=== PATIENT | female | born 1965 | race Caucasian/White ===

== ENCOUNTER → 2020-10-17 15:21 | Outpatient (BNVA) | payer OTHER, MEDICAID, SELFPAY | PROVIDERS: PCP Internal Medicine; Visit Provider Surgery | DX: K60.2 Anal fissure, unspecified (principal); E11.9 Type 2 diabetes mellitus without complications; I10 Essential (primary) hypertension; E66.01 Morbid (severe) obesity due to excess calories; Z68.41 Body mass index [BMI] 40.0-44.9, adult; Z79.4 Long term (current) use of insulin; Z79.899 Other long term (current) drug therapy | CPT/HCPCS: 99202 ==

== ENCOUNTER 2020-11-01 06:57 | Day surgery (SDC) | payer OTHER, SELFPAY ==
--- NOTE | 2020-10-31 09:47 | HO.ANESPROP2 ---
Documented by User: Bell Ramos NP 10/31/20 09:47 HPI - Anesthesia Eval Consult details Narrative: 55yo F for Exam Under Anesthesia, Poss Lateral Internal Sphincterotomy PMFSH Active Problems Active Problems: All Active Problems (Updated 10/25/20 @ 09:01 by Aissatou Torrez, RN) Anal fissure (Acute) Hypertension (Acute) Diabetes mellitus (Acute) Depression (Acute) Thyroid disease (Acute) Morbid obesity (Acute) Past Medical History Medical History (Updated 10/31/20 @ 09:47 by Bell Ramos NP) Anal fissure Depression Diabetes mellitus Hypertension Hypothyroidism Morbid obesity Thyroid disease Family History Family History Mother History of kidney cancer Surgical History Surgical History (Updated 10/24/20 @ 16:10 by Aissatou Torrez RN) S/P anal fissurectomy Social History Social History Alcohol intake: never Patient Tobacco Use Status: Never used Tobacco Second Hand Smoke Exposure: No Use of substances other than those prescribed or required for medical reasons: No Are you DNR?: No Advance Directives: No Advance Directives Information Provided: Yes Advance Directives on File: No Meds Allergies Allergy/AdvReac Type Severity Reaction Status Date / Time No Known Allergies Allergy Verified 10/24/20 16:10 Home Medications Medication Instructions Recorded Confirmed Last Taken Type amitriptyline 10 mg tablet 10 mg PO BEDTIME 10/17/20 10/24/20 Unknown History atorvastatin 20 mg tablet 20 mg PO DAILY 10/17/20 10/24/20 Unknown History insulin glargine 100 unit/mL (3 10 unit SUBCUT QPM 10/17/20 10/24/20 Unknown History mL) subcutaneous pen (Lantus Solostar U-100 Insulin) levothyroxine 200 mcg capsule 200 mcg PO DAILY 10/17/20 10/24/20 Unknown History levothyroxine 50 mcg capsule 50 mcg PO DAILY 10/17/20 10/24/20 Unknown History lisinopril 20 mg tablet 20 mg PO DAILY 10/17/20 10/24/20 Unknown History prazosin 1 mg capsule 1 mg PO BEDTIME 10/17/20 10/24/20 Unknown History sennosides 8.6 mg capsule (senna) 8.6 mg PO BEDTIME 10/17/20 10/24/20 Unknown History trazodone 300 mg tablet 300 mg PO DAILY 10/17/20 10/24/20 Unknown History ziprasidone HCl 20 mg capsule 20 mg PO BID 10/17/20 10/24/20 Unknown History ([place]) Exam Exam Date and Time: October 31, 2020 0947 Assessment and Plan Assessment Anesthesia Assessment: Chart Reviewed Documented by User: Jose Araujo MD 11/01/20 08:05 [facility] Past Medical History Medical History (Updated 10/31/20 @ 09:47 by Bell Ramos NP) Anal fissure Depression Diabetes mellitus Hypertension Hypothyroidism Morbid obesity Thyroid disease Family History Family History Mother History of kidney cancer Family history of problems with anesthesia: No Surgical History Surgical History (Updated 10/24/20 @ 16:10 by Aissatou Torrez RN) S/P anal fissurectomy History of Problems with Anesthesia: No Social History Social History Alcohol intake: never Patient Tobacco Use Status: Never used Tobacco Second Hand Smoke Exposure: No Use of substances other than those prescribed or required for medical reasons: No Are you DNR?: No Advance Directives: No Advance Directives Information Provided: Yes Advance Directives on File: No Meds Allergies Allergy/AdvReac Type Severity Reaction Status Date / Time No Known Allergies Allergy Verified 10/24/20 16:10 Home Medications Medication Instructions Recorded Confirmed Last Taken Type amitriptyline 10 mg tablet 10 mg PO BEDTIME 10/17/20 10/24/20 Unknown History atorvastatin 20 mg tablet 20 mg PO DAILY 10/17/20 10/24/20 Unknown History insulin glargine 100 unit/mL (3 10 unit SUBCUT QPM 10/17/20 10/24/20 Unknown History mL) subcutaneous pen (Lantus Solostar U-100 Insulin) levothyroxine 200 mcg capsule 200 mcg PO DAILY 10/17/20 10/24/20 Unknown History levothyroxine 50 mcg capsule 50 mcg PO DAILY 10/17/20 10/24/20 Unknown History lisinopril 20 mg tablet 20 mg PO DAILY 10/17/20 10/24/20 Unknown History prazosin 1 mg capsule 1 mg PO BEDTIME 10/17/20 10/24/20 Unknown History sennosides 8.6 mg capsule (senna) 8.6 mg PO BEDTIME 10/17/20 10/24/20 Unknown History trazodone 300 mg tablet 300 mg PO DAILY 10/17/20 10/24/20 Unknown History ziprasidone HCl 20 mg capsule 20 mg PO BID 10/17/20 10/24/20 Unknown History ([place]) Exam Airway Mallampati Class: I TM Dist: <=3cm Neck ROM: Full Loose/Missing/Broken Teeth: Yes Heart: ok Lungs: ok Assessment and Plan Final Anesthetic Review Family History of Problems with Anesthesia: No History of Problems with Anesthesia: No NPO: Yes ASA Class: III Final Preanesthetic Review: No Changes in Pt Med Stat, Meds/Allgs Chart Reviewed, Consent Obtained/Reviewed and Anes Risks/Benef Reviewed Patient Risk: Intermediate Procedure Risk: Intermediate Anesthetic Plan Anesthetic Plan: GA, MAC: (Plan MAC w GA backup.) and Agree w/ Assess. and Plan Disposition: Standard PACU
[2020-11-01] VITALS (9 sets, daily range): BP systolic 104–150; BP diastolic 45–74; PULSE 61–81; RESP 12–20; TEMP 36.3–37; O2SAT 94–99; BMI 42.7
[2020-11-01] MEDS: Lactated Ringers 1,000 ML 100 ML IVCONT (07:34)
[2020-11-01 07:37] LABS: Glucose, Whole Blood 127 mg/dL (60-115)
--- NOTE | 2020-11-01 08:40 | MHC.SHP ---
Pre-Procedural Eval Section A Date of Service: 11/01/20 Section B Chief Complaint: Anal Fissure Allergies: Allergies Allergy/AdvReac Type Severity Reaction Status Date / Time ibuprofen [From Motrin] Allergy Hives Verified 11/01/20 08:12 Plan I have reviewed the history and physical and performed a pertinent physical examination on my patient. No changes have occurred unless specified.
--- NOTE | 2020-11-01 09:32 | P.OP_ITS ---
Operative Note Operative Note Date of Service: 11/01/20 Narrative: PREOP DIAGNOSIS: Chronic anal fissure POSTOP DIAGNOSIS: The same PROCEDURE: Exam under anesthesia, lateral internal sphincterotomy Surgeon: Timi Reynoso MD Technology Infusion Specialist: KIM [employer] student The patient is a 55-year-old female with chronic anal pain. Examination in the office revealed an anterior midline anal fissure. She understood technique of exam under anesthesia and lateral internal sphincterotomy. She was aware of the risks, benefits, and alternatives She was brought to the operating placed in prone silas-knife position under monitored anesthesia care. The buttocks were retracted with wide tape laterally. The perianal area was prepped and draped usual sterile fashion. A surgical time-out was done. The patient received Cefotan 2 g IV preoperatively. The perianal area was then infiltrated generously with lidocaine 1%. Examination of the anal canal showed external hemorrhoids. The Jevon Macdonald retractor was inserted into the anal canal and a full examination of the anal canal was done. There were some mixed internal and external hemorrhoidal columns. There was a large anal fissure in the anterior midline at the distal dentate line extending to just at the dentate line itself. The numbers of internal sphincter was visible on the bed I proceeded to identify the intersphincteric groove on the left side by palpation. I then made a short incision on the skin overlying the intersphincteric groove using blade 15. I then did blunt dissection with a hemostat to deepen this and identify the internal sphincter fibers. I identified the intersphincteric plane and positioned the hemostat in the intersphincteric plane to protect the external sphincter fibers. I divided the internal sphincter fibers using electrocautery all the way to the level of the dentate line. I observed for hemostasis. Once hemostasis was ensured, I proceeded to then close the short incision with a running chromic 3-0 stitch. I infiltrated the perianal area with Marcaine 0.5% for postop analgesia. The procedure was then completed The patient tolerated procedure well and there were no complication noted. Initial and finalcounts of sponges and instruments were correct. Estimated blood loss about 5 cc. The patient was then transferred to the recovery room with stable vital signs.
--- NOTE | 2020-11-01 09:40 | P.BOP_ITS ---
Brief Operative Note Date of Service: 11/01/20 Pre-op diagnosis: Anal fissure Post-op diagnosis: same Procedure: Exam under anesthesia, lateral internal sphincterotomy Surgeon: Timi Reynoso MD Anesthesia: MAC Was an Agriculture Professor used for this Procedure?: No Estimated blood loss (mL): 5 Pathology: none sent Condition: stable Disposition: PACU
[2020-11-01] MEDS: ondansetron HCL 4 MG/2 ML VIAL IVPUSH (09:48)
[2020-11-01] MEDS: Acetaminophen 325 MG TABLET 650 MG PO (09:49)
[2020-11-01] MEDS: oxyCODONE HCl Immed Release 5 MG TABLET PO (09:50)
[2020-11-01] MEDS: fentaNYL citrate/PF 100 MCG/2 ML VIAL 50 MCG IVPUSH ×2 (09:51→09:59)
== END 2020-11-01 11:26 | disposition home or self-care (01) ==
PROVIDERS: PCP Internal Medicine; Visit Provider Surgery
PROC: (CPT 46080; principal; 2020-11-01 08:30)
DX: K60.2 Anal fissure, unspecified (principal); E11.9 Type 2 diabetes mellitus without complications; I10 Essential (primary) hypertension; Z79.4 Long term (current) use of insulin; Z79.899 Other long term (current) drug therapy
CPT/HCPCS: 46080; 82947; J2250; J2405; J3010

== ENCOUNTER → 2020-11-21 09:07 | Outpatient (BNVA) | payer OTHER, SELFPAY | PROVIDERS: PCP Internal Medicine; Visit Provider Surgery | DX: Z48.815 Encounter for surgical aftercare following surgery on the digestive system (principal); Z87.19 Personal history of other diseases of the digestive system | CPT/HCPCS: 99212 ==